=== PATIENT | female | born 1980 | race Caucasian/White ===

== ENCOUNTER 2020-03-17 16:34 | Outpatient (CLI) | payer OTHER, SELFPAY ==
--- NOTE | ~2020-03-17 | US_ITS ---
EXAMINATION: US pelvic complete w TV DATE: 03/17/2020 17:17 INDICATION: Left lower quadrant abdominal pain Comparison:No prior studies for comparison. TECHNIQUE: Multiple transabdominal and endovaginal sonographic images of the pelvis performed. FINDINGS: The uterus measures 6.2 x 2.9 x 4.2 cm. The endometrial complex measures 4.5 mm. Near the c ervix there is a hypoechoic structure measuring 1.6 x 1.1 x 1.3 cm, possibly uterine fibroid The right ovary measures 3.4 x 2.2 x 2.9 cm and the left ovary measures 3.4 x 2.6 x 2.5 cm. There is a 2.1 cm right ovarian cyst. There is no free fluid in the pelvis. There are no abnormal masses seen on either side. IMPRESSION: 1. Hypoechoic mass of the uterus near the cervix measuring 1.6 cm maximum dimension, possibly uterine fibroid. 2: 2.1 cm right ovarian cyst. Reviewed, dictated and finalized at location A. IMPRESSION: 1. Hypoechoic mass of the uterus near the cervix measuring 1.6 cm maximum dimen tierra, possibly uterine fibroid. 2: 2.1 cm right ovarian cyst.
== END 2020-03-17 16:35 | disposition home or self-care (01) ==
LOC: ANHIMG 16:43
PROVIDERS: Visit Provider Obstetrics & Gynecology Gynecology
DX: R10.32 Left lower quadrant pain (principal); N85.9 Noninflammatory disorder of uterus, unspecified; N83.201 Unspecified ovarian cyst, right side
CPT/HCPCS: 76830; 76856

== ENCOUNTER 2020-05-29 17:24 | Emergency (ER) | payer OTHER, SELFPAY ==
--- NOTE | ~2020-05-29 | XR_ITS ---
XR foot RT min 3V 05/29/2020 18:03 INDICATION: Right foot pain PROCEDURE: 4 views right foot COMPARISON: No prior studies for comparison. FINDINGS: There is a nondisplaced fracture of the second metatarsal head. Lisfranc joint intact. No o ther fracture.. The soft tissues appear within normal limits. No foreign bodies are identified. IMPRESSION: 1: Nondisplaced fracture right second metatarsal head. Reviewed, dictated and finalized at location A.
[2020-05-29 17:50] VITALS: BP 119/75; PULSE 103; RESP 16; TEMP 36.8; O2SAT 98
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
--- NOTE | 2020-05-29 19:29 | PC.NURSE ---
all wounds cleansed and dressed with possible gravel removed from rt knee. non stick telfa dressings with oitment and coban.
== END 2020-05-29 19:43 | disposition home or self-care (01) ==
PROVIDERS: Emergency Provider Nurse Practitioner; PCP Emergency Medicine
DX: S81.012A Laceration without foreign body, left knee, initial encounter (principal); V29.9XXA Motorcycle rider (driver) (passenger) injured in unspecified traffic accident, initial encounter; S80.211A Abrasion, right knee, initial encounter; S50.312A Abrasion of left elbow, initial encounter; S50.311A Abrasion of right elbow, initial encounter; S40.811A Abrasion of right upper arm, initial encounter; F17.200 Nicotine dependence, unspecified, uncomplicated; F98.8 Other specified behavioral and emotional disorders with onset usually occurring in childhood and adolescence; F41.9 Anxiety disorder, unspecified; F32.9 Major depressive disorder, single episode, unspecified
CPT/HCPCS: 12002; 73630; 99213; G0463